=== PATIENT | male | born 1945 | race Caucasian/White ===

== ENCOUNTER → 2016-10-08 | Day surgery (SDC) | payer MEDICARE ==
[2016-10-08] VITALS (10 sets, daily range): BP systolic 119–148; BP diastolic 72–92; PULSE 62–72; RESP 9–19; O2SAT 92–100
[~2016-10-08] VITALS: Ht 180.3 cm; Wt 83.9 kg
[~2016-10-08] MED LIST: Acetaminophen IV 1,000 mg IV ONE; Atropine 0.4 mg/mL Inj IVPUSH PRN; Belladonna Alk-Opium 60 mg Rectal Suppository RECTAL ONE; CeFAZolin 2 Gm/50 mL D5W IV Premix IV ONE; CeFAZolin Inj 2 gm / 50mL D5W IV ONE; Dexamethasone 4 mg/mL Inj ONE; EPHEDrine Sulfate 50 mg/mL Inj IVPUSH PRN; LACT10SO27 PO; LISI-567 PO; Labetalol 5 mg/mL 20 mL Inj IV PRN; Lactated Ringer's 1,000 ML IV ONE; Lactated Ringer's 1,000 ML IV SCH; Lactated Ringer's 500 ML IV PRN; MetoCLOpramide 5 mg/mL 2 mL Inj IVPUSH PRN; Ondansetron 2 mg/mL 2 mL Inj IVPUSH PRN; Phenylephrine 10,000 mCg/mL Inj IVPUSH PRN; Propofol 10 mg/mL 20 mL Inj ONE; Succinylcholine Chloride 20 mg/mL 5 mL Inj ONE; VIT1TABL55 PO; fentaNYL-PF 50 mCg/mL 2 mL Inj IVPUSH PRN; fentaNYL-PF 50 mCg/mL 2 mL Inj ONE
--- NOTE | 2016-10-08 07:55 | PCM.HPANE ---
Patient Data Surgeon Admitting Provider: Attending Provider:Nicole Rice MD Primary Care Physician:Oc Greenwood MD Other Provider:Chelle Knappingham Anesthesia Reason for Visit Bladder-Neck Obstruction,Prostatic Nodule Regrowth Ht/WT & BMI Height (Feet): 5 Height (Inches): 11.00 Weight (Kilograms): 83.9 Body Mass Index 25.00 Allergies Coded Allergies: tetracycline (Verified Allergy, Severe, Severe abdominal pain, 10/04/16) Past Anesthesia History Anesthesia History: Denies:: Abnormal Airway, Anesthesia Reactions, Difficult Intubation, Fam Anesthesia Reaction, Fam Malignant Hypertherm, Malignant Hyperthermia Diabetes History Hx Diabetes?: No MRSA MRSA: No Medications Hypertension Medication: Yes (Lisinopril) Home Meds Incl Beta Lyndsay: No Reported Medications Vit D3 & K/Berberine HCl/Hops (Ostera Tablet)1 Each Tablet1 Each PO 10/04/16 Lisinopril 20 Mg [id number] Mg PO DAILY 30 Days Ref 0 05/14/14 Discontinued Reported Medications Lactulose 10 Gm/15 Ml [id number] Gm PO DAILY 05/14/14 Tamsulosin (Flomax)0.4 Mg Capsule0.8 Mg PO DAILY 30 Days Ref 0 05/14/14 History History of ENT Problems?: No HEENT History: Positive for:: Cataracts Denies:: Abnormal Airway Difficult Intubation Dysphagia Glaucoma Hearing Problem Sinus Problem TMJ Denture Type: None Teeth Condition: Within Normal Limits Hx of Heart Problems?: Yes Cardiovascular History: Positive for:: Hypertension Denies:: Abdominal Aortic Aneurism Atrial Fibrillation Cardiac Surgery Chest Pain Congestive Heart Failure Coronary Artery Disease Edema Hx of Respiratory Problem?: Yes Respiratory History: Positive for:: Asthma (exercise induced) Use of C-PAP Machine (lost weight now does use since Nov 2015) Denies:: COPD Chest Surgery Cough Dyspnea Emphysema Hemoptysis Pneumonia Pulmonary Embolism Tuberculosis Use of Inhalers / NEBS Hx Neurologic Problems?: No Neurological History: Denies:: Alzheimer's Disease CVA Dementia Dizziness Headaches Multiple Sclerosis Parkinson's Disease Seizures TIA Hx of GI Problems?: Yes Hx of Problems?: No Genitourinary History: Denies:: HX of Hemodialysis Kidney Stones HX of Peritoneal Dialysis: No Male Hx: Positive for:: Prostate Problems (Reason for admission) Testicular Surgery (Vasectomy) Denies:: Scrotal Mass Skin History: Denies:: History Skin Disorders? Pressure Ulcers Hx Musculoskeletal Problems?: No Musculoskeletal History: Positive for:: Back Injury (low back disc herniation tx chiropractic and massage) Denies:: Degenerative Joint Fibromyalgia Joint Replacement Musculoskeletal Trauma Myasthenia Gravis Osteoarthritis Systemic Lupus Hx of Psycho/Social Problems?: No Hx Surgeries?: Yes (TURP) Hx Any Other Health Problems?: No Other History: Positive for:: Hospitalization (TURP) Denies:: Cancer Thyroid Disease History Blood Transfusions: Positive for:: Accept Blood Products? Denies:: Blood Transfusions Hx Diabetes: No Hx Alcohol Use: YesAlcoholic Drinks Per Day: 5-6 beers a weekHx Substance Use : No Smoking Status: Never Smoker Have You Smoked inLast 12 mo: No Stop/Bang Risk Assessment Category Category 1A: Patient has history of documented sleep apnea, and HAS NOT received any narcotic, sedative or anesthesia administration during this stay. Category 1B: Patient has history of documented sleep apnea, and HAS received any narcotic , sedative or anesthesia administration during this stay Category 2: Patient has SUSPECTED Obstructive Sleep Apnea, and HAS received any narcotic , sedative or anesthesia administration during this stay. Category 3: Patient has SUSPECTED Obstructive Sleep Apnea and HAS NOT received narcotic, sedative or anesthesia administration during this stay. Category 4: Outpatient in Procedural Areas with known sleep apnea or who screen positive for High Risk via the STOP/BANG questionnaire. Exam Exam Vital Signs Vital Signs Date Time Temp Pulse Resp B/P Pulse Ox O2 Delivery O2 Flow Rate FiO2 10/08/16 06:02 36.4 70 17 140/81 95 Room Air General Appearance: Alert, Oriented X3, Cooperative, No Acute Distress HEENT/AIRWAY: MP 2, Neck Movement (FROM), Mouth Opening (3 FBMO) Lungs: Clear to Auscultation, Normal Air Movement Heart: Exam Unremarkable, Regular Rate/Rhythm, No Murmurs/Rubs/Gallops Meds/Labs/Diagnostics Admission Meds Current Medications Lactated Ringer's (Lr) 1,000 ml @ ud STK-MED ONCE IV Last administered on 10/08t 06:01; Start 10/08/16 at 06:01; Stop 10/08/16 at 06:02; Status DC Plan Impression Patient chart reviewed, patient interviewed and anesthestic plan with risks, benefits, and alternatives discussed, and informed consent obtained. NPO per Anesth. Guidelines: Yes ASA Physical Status: ASA2 Mod Systemic Disease Anesthetic Plan: GA Bene/Risks/Altern/Consents: Yes HP Complete Prior to Induction: Yes Scar Akers MD Oct 08, 2016 06:55
[2016-10-08] MEDS: HYDROmorphone 1 mg/mL Inj IVPUSH PRN ×2 (08:45→08:51)
--- NOTE | 2016-10-08 09:24 | PCM.ANEP1 ---
Post Anesthesia PACU Phase 1 Assessment Vital Signs Vital Signs Date Time Temp Pulse Resp B/P Pulse Ox O2 Delivery O2 Flow Rate FiO2 10/08/16 09:12 65 18 127/83 94 Room Air 10/08/16 09:07 36.5 65 14 131/74 95 Room Air 10/08/16 09:01 64 9 119/80 93 Room Air 10/08/16 08:45 36.4 62 9 136/75 92 Room Air 10/08/16 08:40 72 15 128/92 100 Simple Mask 8 10/08/16 08:35 66 13 133/82 100 Simple Mask 8 10/08/16 08:30 68 15 137/72 96 Simple Mask 8 10/08/16 08:25 36.3 72 19 129/77 96 Simple Mask 8 10/08/16 06:02 36.4 70 17 140/81 95 Room Air Anesthetic Administered: GA Level of Alertness: Awake, talking AHMADI's with Equal Strength: Yes Pain: No Nausea or Vomiting: No CV Function & Hydration Stable: Yes Airway Device: n/a Oxygen Delivery: Room Air Lungs: Clear to Auscultation, Normal Air Movement Dermatome Level: Full Sensation PACU Phase 2 Assessment Complications: No Follow up Care: N/A Patient Instructions Provided: N/A Scar Akers MD Oct 08, 2016 09:24
[2016-10-08 11:47] LABS: APPEARANCE,URINE HAZY (CLEAR,HAZY); COLOR,URINE STRAW (YELLOW); OCCULT BLOOD,URINE SMALL (NEGATIVE); PH,URINE 5.5 (5.0-8.0); UROBILINOGEN,URINE NORMAL (NORMAL)
--- NOTE | 2016-10-11 13:14 | PATH ---
SURGICAL PATHOLOGY Attending Physician:Nicole Rice MD CASE STATUS: Signed Out PATIENT NAME: MURRAY BARRON PID: [id number] : 1945 DATE COLLECTED:10/08/2016 22:16 SPECIMEN: Prostate, Chips CLINICAL HISTORY: PROSTATE REGROWTH, EXCISION 1). PROSTATE FINAL DIAGNOSIS: Prostate chips, Transurethral Resection: - Prostatic glandular and stromal hyperplasia. - No evidence of malignancy. ICD10: N40.0 GROSS DESCRIPTION: The specimen is received in one formalin filled container labeled with the patient's name, sublabeled "prostate" and consists of multiple portions of pink-hess tissue which aggregate to 3.0 x 3.0 x 1.0 CM. Specimen weighs 5.0 g in total. Specimen is entirely submitted in 6 cassettes. Also received in the same container is a mcginnis-white portion of rubber or plastic which measures 1.3 x 0.9 x 0.9 CM. The foreign material is not submitted. 10/09/2016DC ICD-9 CODES: CPT CODES: 1: 87009 Electronically Signed Out Oscar Gonzalez MD [facility] Pathology [facility], [place] [address] Technical component performed at [facility], [address] [place] [address] Ave[address], [place], [address]
--- NOTE | 2016-10-11 22:55 | OP ---
[address] [address] OPERATIVE REPORT PATIENT: MURRAY BARRON : 1945 MR#: [id number] ADMIT: 10/08/2016 JOB ID: [id number] DATE OF SURGERY: 10/08/2016 PREOPERATIVE DIAGNOSIS(ES): 1. Urinary retention. 2. 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 POSTOPERATIVE DIAGNOSIS(ES): 1. Urinary retention. 2. 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 OPERATION PERFORMED: 1. Transurethral section of bladder neck contracture. 2. Redo transurethral resection of the prostate. SURGEON: Nicole Rice MD ANESTHESIOLOGIST: Scar Akers MD. ANESTHESIA: General. FINDINGS: Urethra normal. External sphincter intact. Prostate 4.5 cm length with obstructing globus right lateral fossa obstruction extending completely across the midline and filling the shape of the completely resected left lateral fossa. Additionally, there was a 16 to 18-Bengali bladder neck contracture. Bladder showed 1 to 2+ trabeculation. Normal orifices bilaterally. No stone, tumor or foreign body visualized. PROCEDURE SUMMARY: The patient was positioned in supine and was administered general anesthesia. He was then repositioned in semi-lithotomy, and the lower abdomen, genitalia, and groin were prepped and draped in sterile fashion. The resectoscope was then advanced to the lower urinary tract under direct visualization with the findings as described above. The scope could not be passed into the bladder until the bladder neck contracture was released. Once in the prostatic fossa, the working element was fitted to the sheath with a resecting loop, and TUR of the bladder neck was conducted by extending the incisions at 3 and 9 with the loop until fat was seen. The intervening tissue shelf was then resected, and then resection proceeded on to enclose the obstructing right lateral nodular regrowth. Additional tissue from the median lobe was also resected to create a smooth contour from bladder trigone to prostatic fossa. Hemostasis was attained with electrocautery satisfactorily. All chips and clots were either irrigated or removed manually from the lower urinary tract. The bladder was left partially filled. A 22-Bengali two-way hematuria catheter was then inserted, the balloon inflated to 30 cc and was placed to gravity drainage. The patient was then repositioned in supine, awakened, transferred to a gurney, and then transported to recovery in stable condition.
== END | disposition home or self-care (01) ==
LOC: SAS 05:33
PROVIDERS: ATTEND Specialist
DX: N40.1 Benign prostatic hyperplasia with lower urinary tract symptoms (principal); R33.9 Retention of urine, unspecified; N32.0 Bladder-neck obstruction; I10 Essential (primary) hypertension; Z79.82 Long term (current) use of aspirin
CPT/HCPCS: 52630; 81000; J0330; J0690; J1100; J1170; J2704; J3010; J7120